=== PATIENT | female | born 1995 | race Caucasian/White ===

== ENCOUNTER 2022-04-26 21:04 | Emergency (ER) | payer OTHER, SELFPAY ==
[2022-04-26 21:06] VITALS: BP 117/71; PULSE 80; RESP 17; TEMP 36.7; O2SAT 99; BMI 28.1
--- NOTE | 2022-04-26 22:43 | EDS_ITS ---
HPI History of Present Illness Chief Complaint: Other, Pain/Inj Informant: patient Narrative Narrative: Presents with nasal injury 8 PM. Was leaning over getting when he walked the dog when it pulled the leash hitting her nose on the door frame. No LOC. Bleeding to the left nare that resolved. No anticoagulants. No past medical history. No neck or back pain. Prior similar symptoms: No PFSH PFSH Allergy/AdvReac Type Severity Reaction Status Date / Time No Known Allergies Allergy Verified 04/26/22 21:09 ROS ROS ED Constitutional Constitutional ED: Denies chills, fever(s) or sweats Eyes Eyes: Denies change in vision ENT ENT ED: Reports other Details: Nasal injury, epistaxis ; Denies dysphagia or sore throat Cardiovascular Cardiovascular: Denies chest pain, leg edema, palpitations or racing heartbeat Respiratory/Chest Respiratory/Chest: Denies cough, dyspnea or dyspnea on exertion Gastrointestinal Gastrointestinal: Denies abdominal pain, diarrhea, nausea or vomiting Genitourinary Genitourinary ED: Denies dysuria, hematuria or urinary frequency Musculoskeletal Musculoskeletal: Denies back pain, extremity pain or neck pain Integumentary Denies rash or wounds Neurologic Neurologic: Denies headache(s), paresthesias or weakness EXAM Physical Exam Const Vital Signs: 04/26/22 21:06 Temperature 98.0 F Temperature Source Temporal Pulse Rate 80 Respiratory Rate 17 Blood Pressure 117/71 Blood Pressure Mean 86 Pulse Ox 99 Oxygen Delivery Method Room Air Positive well nourished and well developed General Appearance ED: well developed and NAD HEENT Reports moist mucous membranes HEENT Narrative: Slight swelling tenderness at the nasal bone. There is small ecchymosis on the left medial canthus. No proptosis or entrapment. No septal hematoma. No active nasal bleeding. normocephalic Eyes PERRL, EOMs intact bilaterally and conjunctivae normal General Eye ED: Yes normal appearance of both eyes Neck full ROM, no lymphadenopathy and supple General: Negative for tenderness Chest Wall Chest: Negative for tenderness Resp normal respiratory effort and normal air movement Effort and Inspection: symmetric chest movement; Negative for respiratory di stress Cardio regular rate, regular rhythm and no murmurs Peripheral Pulses: pulses 2+ throughout GI normal to inspection, nondistended, normoactive bowel sounds and non-tender Palpation: Negative for guarding or rebound tenderness present Back/Spine no CVA tenderness and no thoracic nor lumbar tenderness Extremity normal to inspection General Extremety ED: Negative for edema or tenderness General Extremity: Negative for edema Neuro oriented x3, CN's II-XII intact bilaterally and no sensory deficits noted Sensorium / Orientation: awake and alert Skin no rashes or lesions noted and no wounds MDM MDM MDM Narrative Medical decision making narrative: Patient clinical nasal bone fracture. Is no active bleeding. There is no facial bone tenderness no proptosis entrapment. No trismus. I discussed clinically treatment be the same. She agrees without imagings at this time. I will injury precautions. Tylenol Motrin as needed. Declines any medicines in the ED. Discussed could develop septal deviation that is managed later as an outpatient. She is given ENT for follow-up. All questions were answered. Discharge Plan Triage Chief Complaint: Other, Pain/Inj ED Provider: Ronak Thapa Dx/Rx/DC Orders Clinical Impression: Closed fracture nasal bone, Epistaxis due to trauma Instructions: ED Nose Fracture, No X-Ray Referrals: Kayode Greenberg MD [Med Staff - Active Staff] - 1-2 Weeks Disposition Disposition: Home, Self Care
== END 2022-04-26 23:07 | disposition home or self-care (01) ==
LOC: ED 22:53
PROVIDERS: Emergency Provider Emergency Medicine; Visit Provider Emergency Medicine
DX: S02.2XXA Fracture of nasal bones, initial encounter for closed fracture (principal); W22.8XXA Striking against or struck by other objects, initial encounter
CPT/HCPCS: 99282

== ENCOUNTER → 2023-03-13 | Outpatient (CLI) | payer OTHER, SELFPAY ==
[2023-03-13 11:36] LABS: Bacteria 0 SEEN /hpf (None Seen); Mucous, Urine 0 SEEN /hpf (<or=2+); Red Blood Cells-Urine 0 SEEN /hpf (0-5); White Blood Cells 0 SEEN /hpf (0-5)
[2023-03-13 12:24] LABS: Color, Urine Yellow (Yellow); Glucose, Dipstick Normal (Normal); Ketone-Dipstick Negative (Negative); Leukocyte Esterase-Dipstick Negative /ul (Negative); Nitrite-Dipstick Negative (Negative); Occult Blood-Urine Negative /ul (Negative); Protein-Dipstick Negative (Negative); Specific Gravity, Urine 1.005 (1.002-1.030); Urine Bilirubin Dipstick Negative (Negative); Urine Clarity Sl. Cloudy (Clear); Urine Urobilinogen Normal (Normal)
[2023-03-13 12:25] LABS: Absolute Lymphocyte Count 2.88 X10^3/uL (0.83-4.51); Absolute Neutrophil Count 6.9 X10^3/uL (2.0-7.7); Basophil# 0.04 X10^3/uL; Basophil% 0.4 % (0-1); Eosinophil# 0.08 X10^3/uL; Eosinophils% 0.7 % (0-5); Hematocrit 38.1 % (37-47); Hemoglobin 12.3 g/dL (12.0-15.0); Lymphocyte # 2.88 X10^3/ul (0.83-4.51); Lymphocyte % 26.4 % (19-41); Mean Corp Hgb Conc 32.3 g/dL (32-36); Mean Corpuscular Hgb 30.4 pg (27.0-32.0); Mean Corpuscular Volume 94.1 fL (81-99); Mean Platelet Vol. 9.8 fl (6.2-12.0); Monocyte# 0.93 X10^3/uL; Monocyte% 8.5 % (0-10); NRBC Flagged by Analyzer 0 % (0-5); Neutrophil # 6.94 X10^3/uL (2.7-7.7); Neutrophil % 63.7 % (47-70); Platelet Count 306 K/mm3 (150-450); RBC Distribution Width CV 12.1 % (11.6-14.6); RBC Distribution Width SD 42.5 fl (35.1-43.9); Red Blood Count 4.05 M/mm3 (4.2-5.4); White Blood Count 10.9 K/mm3 (4.4-11.0)
[2023-03-13 12:47] LABS: Internal QC Validated? YES +Cl - CLEAR BKGD
[2023-03-13 12:49] LABS: Squamous Epithelial Cells - UA 0-5 SEEN /hpf (5-10)
[2023-03-13 13:03] LABS: AST(SGOT) 18 U/L (15-37); Alanine Aminotransfer ALT/SGPT 25 U/L (13-56); Albumin, Serum 3.6 g/dL (3.2-5.0); Alkaline Phosphatase 60 U/L (45-117); Anion Gap 4 (5-15); BUN 11 mg/dL (7-18); BUN/Creat Ratio 16.9 RATIO (10-20); Calcium,Total 8.9 mg/dL (8.5-10.1); Chloride 107 mmol/L (98-107); Creatinine, Serum 0.65 mg/dL (0.55-1.02); EST Glomerular Filtration Rate 117 mL/min (>60); Est Glom Filt Rate - Afr Amer 141 mL/min (>60); Globulin 3.6 g/dL (2.2-4.2); Glucose 76 mg/dL (74-106); Protein, Total 7.2 g/dL (6.4-8.2); Sodium Level 138 mmol/L (136-145); Thyroid Stim Hormone (TSH) 1.14 uIU/mL (0.358-3.74)
[2023-03-13 13:10] LABS: Pregnancy, Serum, hCG Quali. POSITIVE Negative (0-9 Nonpreg); hCG Titer Quant., Serum 17210 mIU/mL (1-3)
== END | disposition home or self-care (01) ==
LOC: BIMLAB 11:33
PROVIDERS: PCP Internal Medicine; Referring Provider Internal Medicine; Visit Provider Internal Medicine
DX: Z00.00 Encounter for general adult medical examination without abnormal findings (principal)
CPT/HCPCS: 36415; 80053; 81001; 84443; 84702; 84703; 85025

== ENCOUNTER → 2023-03-27 | Outpatient (CLI) | payer OTHER, SELFPAY ==
--- NOTE | 2023-03-27 12:44 | US_ITS ---
STUDY: FIRST TRIMESTER OBSTETRICAL ULTRASOUND REASON FOR EXAM: Female, 27 years old . Dating. LMP: January 13, 2023. TECHNIQUE: Transvaginal TECHNICAL QUALITY: Adequate. PRIOR ULTRASOUND: None. FINDINGS: There is visualization of a single gestational sac in a normal intrauterine position. The mean sac diameter (MSD) measures 2.85 cm, indicating an estimated gestational age (EGA) of 7 weeks, 6 days. The gestational sac shape is within normal limits. There is a visualized yolk sac. The yolk sac measures 4.6 mm. The placenta is non-visualized. There is visualization of a live embryo. The crown-rump length (CRL) measures 2.43 cm, indicating an estimated gestational age (EGA) of 8 weeks, 6 days. There is demonstrated cardiac activity with a heart rate of 161 bpm. The estimated gestation age (EGA) by LMP is 10 weeks, 3 days. The estimated date of delivery (MICHAEL) by LMP is October 20, 2023. The estimated gestation age (EGA) by US is 8 weeks, 3 days. The estimated date of delivery (MICHAEL) by US is November 03, 2023. The uterus measures 10.3 cm x 6.9 cm x 5.1 cm. There is no demonstrated uterine fibroid. The cervix is closed. The right ovary measures 3.2 cm x 1.9 cm x 2.6 cm. There is no right ovarian cyst. There is no visualized right adnexal mass or complex lesion. The left ovary measures 3.9 cm x 2.5 cm x 2.1 cm. There is no left ovarian cyst. There is no visualized left adnexal mass or complex lesion. There is no fluid in the cul de sac. US/Transvaginal w/Preg US IMPRESSION: Single live intrauterine gestation with a mean gestational age of 8 weeks and 3 days. Electronically Signed: Claude Holm MD at 13:25 EDT ,
[2023-03-29 22:07] LABS: Chlamydia By Nucleic Acid AMP Negative (Negative); Gonococcus By Nucleic Acid AMP Negative (Negative)
[2023-03-31 16:28] LABS: HPV Reflexed? NOT INDICATED
== END | disposition home or self-care (01) ==
PROVIDERS: PCP Internal Medicine; Referring Provider Registered Nurse; Visit Provider Registered Nurse
DX: O09.91 Supervision of high risk pregnancy, unspecified, first trimester (principal); Z12.4 Encounter for screening for malignant neoplasm of cervix; Z3A.00 Weeks of gestation of pregnancy not specified
CPT/HCPCS: 76817; 87086; 87491; 87591; 88175; G0145

== ENCOUNTER → 2023-05-31 | Outpatient (CLI) | payer OTHER, SELFPAY ==
[2023-05-31 14:02] LABS: Absolute Lymphocyte Count 2.06 X10^3/uL (0.83-4.51); Absolute Neutrophil Count 10.5 X10^3/uL (2.0-7.7); Basophil# 0.03 X10^3/uL; Basophil% 0.2 % (0-1); Eosinophil# 0.07 X10^3/uL; Eosinophils% 0.5 % (0-5); Hematocrit 36.3 % (37-47); Hemoglobin 12.3 g/dL (12.0-15.0); Lymphocyte # 2.06 X10^3/ul (0.83-4.51); Lymphocyte % 15.3 % (19-41); Mean Corp Hgb Conc 33.9 g/dL (32-36); Mean Corpuscular Hgb 30.7 pg (27.0-32.0); Mean Corpuscular Volume 90.5 fL (81-99); Mean Platelet Vol. 10.2 fl (6.2-12.0); Monocyte# 0.71 X10^3/uL; Monocyte% 5.3 % (0-10); NRBC Flagged by Analyzer 0 % (0-5); Neutrophil # 10.48 X10^3/uL (2.7-7.7); Neutrophil % 78.1 % (47-70); Platelet Count 312 K/mm3 (150-450); RBC Distribution Width CV 12.1 % (11.6-14.6); RBC Distribution Width SD 39.8 fl (35.1-43.9); Red Blood Count 4.01 M/mm3 (4.2-5.4); White Blood Count 13.4 K/mm3 (4.4-11.0)
[2023-05-31 14:53] LABS: NATERA MAILED SPECIMEN
[2023-05-31 14:58] LABS: HIV - WCH Non-Reactive (Nonreactive); Hepatitis B Surface Antigen Non-Reactive (Nonreactive); Hepatitis C Antibody Non-Reactive (Nonreactive); Rubella IgG Reactive (Nonreactive); Syphilis Antibodies Non-reactive
== END | disposition home or self-care (01) ==
LOC: PAVLAB 13:38
PROVIDERS: Registered Nurse; PCP Internal Medicine; Referring Provider Nurse Practitioner Women's Health; Visit Provider Nurse Practitioner Women's Health
DX: O09.91 Supervision of high risk pregnancy, unspecified, first trimester (principal); Z3A.00 Weeks of gestation of pregnancy not specified
CPT/HCPCS: 36415; 85025; 86703; 86762; 86780; 86803; 86850; 86900; 86901; 87340

== ENCOUNTER → 2023-06-05 | Outpatient (CLI) | payer OTHER, SELFPAY ==
[2023-06-05 15:35] LABS: Glucose Challenge Gest 1H 50g 154 mg/dL (70-140)
== END | disposition home or self-care (01) ==
PROVIDERS: PCP Internal Medicine; Referring Provider Registered Nurse; Visit Provider Registered Nurse
DX: O99.210 Obesity complicating pregnancy, unspecified trimester (principal); Z3A.00 Weeks of gestation of pregnancy not specified
CPT/HCPCS: 36415; 82950

== ENCOUNTER → 2023-06-12 | Outpatient (CLI) | payer OTHER, SELFPAY ==
[2023-06-12 07:25] LABS: Glucose GTT-Gestation. Fasting 90 mg/dL (<105)
[2023-06-12 08:43] LABS: Glucose GTT-Gestational 1 Hr 173 mg/dL (<190)
[2023-06-12 09:40] LABS: Glucose GTT-Gestational 2 Hr 136 mg/dL (<165)
[2023-06-12 10:14] LABS: Glucose GTT-Gestational 3 Hr 81 L (<145)
== END | disposition home or self-care (01) ==
LOC: LAB 06:37
PROVIDERS: PCP Internal Medicine; Referring Provider Registered Nurse; Visit Provider Registered Nurse
DX: O99.810 Abnormal glucose complicating pregnancy (principal); Z3A.00 Weeks of gestation of pregnancy not specified
CPT/HCPCS: 36415; 82951; 82952

== ENCOUNTER → 2023-08-14 | Outpatient (CLI) | payer OTHER, SELFPAY ==
[2023-08-14 07:21] LABS: Glucose GTT-Gestation. Fasting 104 mg/dL (<105)
[2023-08-14 09:58] LABS: Glucose GTT-Gestational 2 Hr 131 mg/dL (<165)
[2023-08-14 10:21] LABS: Glucose GTT-Gestational 1 Hr 234 mg/dL (<190)
[2023-08-14 10:43] LABS: Glucose GTT-Gestational 3 Hr 79 L (<145)
== END | disposition home or self-care (01) ==
LOC: LAB 06:47
PROVIDERS: PCP Internal Medicine; Referring Provider Obstetrics & Gynecology; Visit Provider Obstetrics & Gynecology
DX: O99.810 Abnormal glucose complicating pregnancy (principal); Z3A.00 Weeks of gestation of pregnancy not specified
CPT/HCPCS: 36415; 82951; 82952

== ENCOUNTER 2023-09-26 16:00 | Outpatient (RCR) | payer OTHER, SELFPAY | END 2023-09-27 23:59 | LOC: DC 16:00 | PROVIDERS: PCP Internal Medicine; Referring Provider Registered Nurse; Visit Provider Registered Nurse | DX: O24.419 Gestational diabetes mellitus in pregnancy, unspecified control (principal); Z71.3 Dietary counseling and surveillance | CPT/HCPCS: 97802; 97803 ==

== ENCOUNTER 2023-10-04 11:05 | Outpatient (RCR) | payer OTHER, SELFPAY | END 2023-10-26 23:59 | LOC: DC 11:05 | PROVIDERS: PCP Internal Medicine; Referring Provider Registered Nurse; Visit Provider Registered Nurse | DX: O24.419 Gestational diabetes mellitus in pregnancy, unspecified control (principal); Z71.3 Dietary counseling and surveillance | CPT/HCPCS: 97803 ==

== ENCOUNTER → 2023-10-06 | Outpatient (CLI) | payer OTHER, SELFPAY ==
[2023-10-06 19:36] LABS: Group B Strep DNA By PCR Negative (Negative); Internal Control PASS; Probe Check PASS; Specimen Processing Control PASS
== END | disposition home or self-care (01) ==
PROVIDERS: PCP Internal Medicine; Referring Provider Advanced Practice Midwife; Visit Provider Advanced Practice Midwife
DX: Z34.90 Encounter for supervision of normal pregnancy, unspecified, unspecified trimester (principal)
CPT/HCPCS: 87081; 87653

== ENCOUNTER → 2023-10-13 | Outpatient (CLI) | payer OTHER, SELFPAY ==
--- NOTE | 2023-10-13 14:35 | US_ITS ---
STUDY: SECOND AND THIRD TRIMESTER OBSTETRICAL ULTRASOUND REASON FOR EXAM: Female, 28 years old growth TECHNIQUE: Transabdominal PRIOR ULTRASOUND: 03/27/2023 FINDINGS: There is a single intrauterine fetus. The fetus is in a cephalic presentation. There is demonstrated cardiac activity with a heart rate of 148 bpm. There is a normal amniotic fluid volume. The largest amniotic fluid pocket measures 9.3 cm. The amniotic fluid index (KIEL) is 15.2 cm. The placenta is anterior. There are Grade 0 placental changes. The cervix is not visualized. The bilateral adnexal regions are normal. BPD: 9.2 cm = 37 weeks, 1 day(s) HC: 32.4 cm = 36 weeks, 5 day(s) AC: 33.7 cm = 37 weeks, 4 day(s) FL: 7.1cm = 36 weeks, 4 day(s) EGA by ultrasound: 37 weeks 1 day(s) MICHAEL by ultrasound: 11/02/2023 Estimated weight: 3195 grams Weight percentile: 66% US/OB Limited With Biometrics IMPRESSION: Living intrauterine with estimated gestational age of 37 weeks and 1 days. Electronically Signed: Boy Jones MD at 17:22 EST ,
== END | disposition home or self-care (01) ==
LOC: US 14:34
PROVIDERS: PCP Internal Medicine; Referring Provider Advanced Practice Midwife; Visit Provider Advanced Practice Midwife
DX: O24.419 Gestational diabetes mellitus in pregnancy, unspecified control (principal); Z3A.00 Weeks of gestation of pregnancy not specified
CPT/HCPCS: 76816

== ENCOUNTER 2023-10-28 21:35 | Inpatient (IN) | payer OTHER, SELFPAY ==
--- OUTSIDE RECORDS SUMMARY | 2023-10-28 20:38 | XMS RPT_ITS | CCD ---
Author Name Unknown Address [address] [place] [address] Organization [facility] Care Team Providers Care Hop Grower Name Role Phone ALETHEA GRIFFITH Referring Unavailab VIVI Ortiz Primary Care Unavailable ALMITA GARCIA Attending Unavailable Encounters Encounter Date Encounter Type Care Provider Facility Start: 06-05-2023 End: 06-05-2023 ambulatory ALETHEA GRIFFITH [facility] Payers Date Payer Category Payer Unknown [id number] Private Health Insurance [id number] Summary Purpose Family History No Family History Records Found Advance Directives No Advanced Directives Records Found Additional Source Comments INFORMATION SOURCE (unrecogn ized section and content) FOR RECORDS PERTAINING TO PATIENTS WHO ARE OR HAVE BEEN ENROLLED IN A CHEMICAL DEPENDENCY/SUBSTANCEABUSE PROGRAM, SOME INFORMATION MAY BE OMITTED. This clinical summary was aggregated from multiple sources. Caution should be exercised in using it in the provision of clinical care. This summary normalizes information from multiple sources, and as a consequence, information in this document may materially change the coding, format and clinical context of patient data. In addition, data may be omitted in some cases. CLINICAL DECISIONS SHOULD BE BASED ON THE PRIMARY CLINICAL RECORDS. [employer] [facility]. provides no warranty or guarantee of the accuracy or completeness of information in this document.
--- OUTSIDE RECORDS SUMMARY | 2023-10-28 20:40 | XMS RPT_ITS | CCD ---
Author Name Unknown Address [address] [place] [address] Organization [facility] Care Team Providers Care Teasel Gig Operator Name Role Phone ALETHEA GRIFFITH Referring Unavailab VIVI Ortiz Primary Care Unavailable ALMITA GARCIA Attending Unavailable Encounters Encounter Date Encounter Type Care Provider Facility Start: 06-05-2023 End: 06-05-2023 ambulatory ALETHEA GRIFFITH [facility] Payers Date Payer Category Payer Unknown [id number] Private Health Insurance [id number] Summary Purpose Family History No Family History [...] BE BASED ON THE PRIMARY CLINICAL RECORDS. [employer] [facility]. provides no warranty or guarantee of the accuracy or completeness of information in this document.
[2023-10-28 20:52] VITALS: PULSE 98; O2SAT 97
[2023-10-28 20:53] VITALS: BP 124/81; PULSE 90; TEMP 36.9
[2023-10-28 21:00] VITALS: BMI 36.9
[2023-10-28 21:33] LABS: ROM Internal Control Test YES-OK TO RESULT pt. (Internal QC)
[2023-10-28 21:34] LABS: ROM Patient Test POSITIVE (Negative)
--- OUTSIDE RECORDS SUMMARY | 2023-10-28 21:46 | XMS RPT_ITS | CCD ---
Author Name Unknown Address [address] [place] [address] Organization [facility] Care Team Providers Care Patient Access Director Name Role Phone ALETHEA GRIFFITH Referring Unavailab VIVI Ortiz Primary Care Unavailable ALMITA GARCIA Attending Unavailable Encounters Encounter Date Encounter Type Care Provider Facility Start: 06-05-2023 End: 06-05-2023 ambulatory ALETHEA GRIFFITH [facility] Payers Date Payer Category Payer Unknown [id number] Private Health Insurance [id number] Summary Purpose Family History No Family History [...] BE BASED ON THE PRIMARY CLINICAL RECORDS. [employer] [facility]. provides no warranty or guarantee of the accuracy or completeness of information in this document.
[2023-10-28] MEDS: 0.9% Saline Lock 10 ML Syringe IV (21:50)
[2023-10-28 22:10] LABS: Absolute Lymphocyte Count 2.14 X10^3/uL (0.83-4.51); Absolute Neutrophil Count 8.7 X10^3/uL (2.0-7.7); Basophil# 0.01 X10^3/uL; Basophil% 0.1 % (0-1); Eosinophil# 0.09 X10^3/uL; Eosinophils% 0.8 % (0-5); Hemoglobin 11.7 g/dL (12.0-15.0); Lymphocyte # 2.14 X10^3/ul (0.83-4.51); Lymphocyte % 18.3 % (19-41); Mean Corp Hgb Conc 33.4 g/dL (32-36); Mean Corpuscular Hgb 29.8 pg (27.0-32.0); Mean Corpuscular Volume 89.3 fL (81-99); Mean Platelet Vol. 10.7 fl (6.2-12.0); Monocyte# 0.76 X10^3/uL; Monocyte% 6.5 % (0-10); NRBC Flagged by Analyzer 0 % (0-5); Neutrophil # 8.68 X10^3/uL (2.7-7.7); Platelet Count 236 K/mm3 (150-450); RBC Distribution Width CV 13.2 % (11.6-14.6); RBC Distribution Width SD 43.2 fl (35.1-43.9); Red Blood Count 3.92 M/mm3 (4.2-5.4); White Blood Count 11.7 K/mm3 (4.4-11.0)
[2023-10-28 22:20] LABS: Bedside Glucose 80 mg/dL (74-106)
[2023-10-28 23:06] VITALS: BP 122/71; PULSE 90; TEMP 36.3; O2SAT 96
[2023-10-28 23:28] LABS: Bedside Glucose 79 mg/dL (74-106)
[2023-10-28 23:57] LABS: Syphilis Antibodies Non-reactive
[2023-10-29] VITALS (20 sets, daily range): BP systolic 106–137; BP diastolic 60–88; PULSE 76–105; RESP 16; TEMP 36.2–37.1; O2SAT 98–99
[2023-10-29] MEDS: Oxytocin 15 Units/NS 250ml 15 UNITS/250 ML IV.SOLN 2 UNITS IV (00:58)
[2023-10-29] MEDS: Lactated Ringers 1,000 ML 50 ML IV (00:58)
[2023-10-29 03:33] LABS: Bedside Glucose 91 mg/dL (74-106)
--- NOTE | 2023-10-29 05:41 | HP.PCM.OB_ITS ---
HPI - General General Date of Admission: 10/28/23 Date of Service: 10/29/23 Chief Complaint: leaking of fluid HPI Narrative ALETHEA MATHUR, is a 28 F who presents at 39.2 with LOF since 1800 10/28/2023, clear fluid. no vb, irregular contractions upon admission.good fm. course complicated by gestational diabetes, diet controlled. GBS negative. Maternal Data Information MICHAEL Calculator Estimated Delivery Date Method Current WG Current Estimate 11/03/23 Ultrasound #1 39w 2d Other Estimates 10/20/23 LMP (Certain) 41w 2d [facility] Medical History (Updated 10/29/23 @ 05:47 by Emily Edgar CNM) Allergies Anxiety Gestational diabetes History of back problems Scoliosis Home Medications calcium-magnesium 750 mg-465 mg tablet 750 tab PO DAILY supplement 03/07/23 [History Last Taken 10/27/23] vitamin#30 30 mg iron-10 mg iron-folic acid 1 mg-omg3 capsule 30 cap PO DAILY 03/07/23 [History Last Taken 10/28/23] zinc gluconate 50 mg tablet 50 mg PO DAILY 03/07/23 [History Last Taken 10/27/23] Allergy/AdvReac Type Severity Reaction Status Date / Time No Known Allergies Allergy Verified 10/28/23 21:01 Family History Mother Anxiety Diabetes Sister Anxiety Grandfather Diabetes Grandmother Brain tumor Father Diabetes Grandmother Diabetes Surgical History No pertinent past surgical history Social History household members: spouse current occupational status: employed 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 [employer] Smoking Status: Never smoker Electronic Cigarette Use: not used alcohol intake: current alcohol intake frequency: holidays/special occasions only details: not currently due to substance use type: does not use what type of physical activity do you participate in: walking do you feel safe at home: Yes additional social history: Mark History 1 Elective abortions Hx Para 0 Spontaneous abortions Hx # Term Pregnancies Ectopic pregnancies Hx # Pregnancies Multiple births # of living children Visit Details Expected Delivery Route/Plan Labor Preferences- CB/BF classes: encouraged, might not be able to attend d/t timing. [employer] online course enc. labor support person: Mark labor intervention preferences: [] pain management options preferred: unmedicated cut cord/dad catch: [] : yes PP control planned: [] discussed possible routes of delivery and associated risks: [] special requests: [] Plans Covid status: unvax Flu vaccine: declines Tdap vaccine: declined Rhogam: at 28 weeks, prn LARC form signed: completed movement and labor precautions reviewed. Problem list reviewed and updated with the most current plan of care details and appropriate orders placed. Relevant counseling for the gestational age provided. Continue routine care and follow up unless otherwise noted in visit notes/problem list details OB Flowsheet Initial Weight: Not Recorded Date -?-?-?-?-?-?-?-?-?-?-?-?- EGA Weight BP Urine Prot -?-?-?-?-?-?-?-?-?-?-?-?- Glucose FHR FuHt Pres Dilation -?-?-?-?-?-?-?-?-?-?-?-?- Effaced St Visit Note 03/27/23 -?-?-?-?-?-?-?-?-?-?-?-?- 8w 3d 179 lb 8 oz 133/81 -?-?-?-?-?-?-?-?-?-?-?-?- 160 -?-?--?-?-?-?-?-?-?-?-?-?- LC- formal ultra sound scheduled for today. CRL difficult to visualize.+FHR 160. early glucose. discussed and desires NIPT 04/28/23 -?-?-?-?-?-?-?-?-?-?-?-?- 13w 0d 184 lb 4 oz 125/75 Nega tive -?-?-?-?-?-?-?-?-?-?-?-?- Negative 160 -?-?-?-?-?-?-?-?-?-?-?-?- KW-no vb/crampin kain BRONSON-no vb/cramping. Discussed AFP. US ordered 05/31/23 -?-?-?-?-?-?-?-?-?-?-?-?- 17w 5d 187 lb 4 oz 120/72 Nega tive -?-?-?-?-?-?-?-?-?-?-?-?- Negative 145 -?-?-?-?-?-?-?-?-?-?-?-?- MH-No VB. Feels well. Will do PN labs and NIPT today. MFM US next week. Declines flu vaccine 06/30/23 -?-?-?-?-?-?-?-?-?-?-?-?- 22w 0d 196 lb 2 oz Negative -?-?-?-?-?-?-?-?-?-?-?-?- Negative 140 -?-?-?-?-?-?-?-?-?-?-?-?- JV- no lof, vagi nal bleeding, or dec fm.passed 3 hour at 17 weeks. plan to rpt at 28 weeks. 07/28/23 -?-?-?-?-?-?-?-?-?-?-?-?- 26w 0d 203 lb 112/76 Negative -?-?-?-?-?-?-?-?-?-?-?-?- Negative 140 27 -?-?-?-?-?-?-?-?-?-?-?-?- SM- plan 3 hrgtt no vb lof good fm no regular ctx plan cb classes 08/11/23 -?-?-?-?-?-?-?-?-?-?-?-?- 28w 0d 205 lb 2 oz 116/74 -?-?-?-?-?-?-?-?-?-?-?-?- 130 28 -?-?-?-?-?-?-?-?-?-?-?-?- LC- no vb/ctx/lo f. good fm. obtaining labs on monday using fresh test. 08/25/23 -?--?-?-?-?-?-?-?-?-?-?-?- 30w 0d 202 lb 4 oz 112/71 Nega tive -?-?-?-?-?-?-?-?-?-?-?-?- Negative 140 29 -?-?-?-?-?-?-?-?-?-?-?-?- LC- no vb/ctx/lo f. good fm. GDM. need foot setter referral. started checking glucose, all fasting under 95. LC- no vb/ctx/lof. good fm. GDM. need foot setter referral. started checking glucose, all fasting under 95. athlete foot bilaterally nystatin powder rx sent. LC- no vb/ctx/lof. good fm. GDM. need foot setter referral, reviewed diabetic diet. 20% pp sugars are elevated. started checking glucose, all fasting under 95. athlete foot bilaterally nystatin powder rx sent. 09/08/23 -?-?-?-?-?-?-?-?-?-?-?-?- 32w 0d 206 lb 102/67 Negative -?-?-?-?-?-?-?-?-?-?-?-?- Negative 140 34 -?-?-?-?-?-?-?-?-?-?-?-?- SM- no vb lof go od fm n oregular ctxBS reviewed, labor preferences sheet given 09/22/23 -?-?-?-?-?-?-?-?-?-?-?-?- 34w 0d 206 lb 8 oz 120/70 Nega tive -?-?-?-?-?-?-?-?-?-?-?-?- Negative 140 35 -?-?-?-?-?-?-?-?-?-?-?-?- SM- no vb lof go od fm no regualr ctx discussed preferences, reivewed BS- reduced dinner carb intake and if still elevated recommend starting medicine with dinner 09/29/23 -?-?-?-?-?-?-?-?-?-?-?-?- 35w 0d 211 lb 117/72 -?-?-?-?-?-?-?-?-?-?-?-?- 130 36 Cephalic -?-?-?-?-?-?-?-?-?-?-?-?- SM- BS reviewed and WNL, no vb lof good fm no regular ctx growth US next week 10/06/23 -?-?-?-?-?-?-?-?-?-?-?-?- 36w 0d 210 lb 8 oz 118/78 Nega tive -?-?-?-?-?-?-?-?-?-?-?-?- Negative 130 38 Cephalic -?-?-?-?-?--?-?-?-?-?-?-?- KW- no vb/lof/ct x. good fm. BS reviewed and within range. gbs done. labor precautions reviewed KW- no vb/lof/ctx. good fm. BS reviewed and within range. gbs done. labor precautions. growth us ordered. 10/13/23 -?-?-?-?-?-?-?-?-?-?-?-?- 37w 0d 211 lb 6 oz 113/74 Nega tive -?-?-?-?-?-?-?-?-?-?-?-?- Negative 130 38 Cephalic -?-?-?-?-?-?-?-?-?-?-?-?- SM- BS controlle d, no vb lof good fm no regular ctx 10/20/23 -?-?-?-?-?-?-?-?-?-?-?-?- 38w 0d 213 lb 2 oz 113/76 Nega tive -?-?-?-?-?-?-?-?-?-?-?-?- Negative 135 38.5 Cephalic -?-?-?-?-?-?-?-?-?-?-?-?- JV- no lof, vagi nal bleeding, or dec fm. pt declines vaginal exam. She does not want to be checked until 40 weeks and wants to wait until 40 weeks 3 or 4 days to be induced. glucose levels are stable. 10/27/23 -?-?-?-?-?-?-?-?-?-?-?-?- 39w 0d 211 lb 125/81 Negative -?-?-?-?-?-?-?-?-?-?-?-?- Negative 135 40 Cephalic -?-?-?-?-?-?-?-?-?-?-?-?- KW- no vb/lof/re g ctx. good fm. Discussed setting up IOL and methods of induction. labor precautions discussed NST FHR Rate Baby A Baseline: 130 Variability:: Moderate Accelerations:: 15 x 15 Decelerations:: None NST Reactive:: Yes FHR Category:: Category I ROS Cardiovascular Cardiovascular: Denies abdominal pain, chest pain, diaphoresis or dyspnea Respiratory/Chest Respiratory/Chest: Denies change in mental status, chest congestion, chest tightness, cough, shortness of breath at rest, shortness of breath with exertion, breast mass, breast pain, breast skin changes, breast swelling, change in breast shape or nipple discharge Genitourinary Genitourinary: Reports change in urinary stream Musculoskeletal Musculoskeletal: Reports none Integumentary Integumentary: Reports none Neurologic Neurologic: Reports none Psychiatric Psychiatric: Reports none Endocrine Endocrinology: Reports none Hematologic/Lymphatic Hematologic/Lymphatic: Reports none Allergic/Immunologic Allergic/Immunologic: Reports none Vital Signs Vital Signs Vital Signs: 10/28/23 20:52 10/28/23 20:52 10/28/23 20:53 Temperature Temperature Source Pulse Rate 98 Blood Pressure 124/81 H BP Systolic 124 BP Diastolic 81 Pulse Ox 97 10/28/23 20:53 10/28/23 20:53 10/28/23 20:53 Temperature 98.4 F Temperature Source Temporal Pulse Rate 90 Blood Pressure BP Systolic BP Diastolic Pulse Ox 10/28/23 23:06 10/28/23 23:06 10/28/23 23:06 Temperature Temperature Source Pulse Rate 90 Blood Pressure 122/71 H BP Systolic 122 BP Diastolic 71 Pulse Ox 96 10/28/23 23:06 10/28/23 23:06 10/29/23 00:02 Temperature 97.4 F L Temperature Source Temporal Pulse Rate Blood Pressure 122/75 H BP Systolic 122 BP Diastolic 75 Pulse Ox 10/29/23 00:02 10/29/23 00:02 10/29/23 00:02 Temperature 97.2 F L Temperature Source Temporal Pulse Rate 81 Blood Pressure BP Systolic BP Diastolic Pulse Ox 10/29/23 01:06 10/29/23 01:06 10/29/23 01:06 Temperature Temperature Source Temporal Pulse Rate 84 Blood Pressure 121/67 H BP Systolic 121 BP Diastolic 67 Pulse Ox 10/29/23 01:06 10/29/23 02:10 10/29/23 02:10 Temperature 97.7 F L Temperature Source Pulse Rate 97 Blood Pressure 133/65 H BP Systolic 133 BP Diastolic 65 Pulse Ox 10/29/23 02:10 10/29/23 02:10 10/29/23 03:08 Temperature 98.4 F Temperature Source Temporal Pulse Rate Blood Pressure 120/87 H BP Systolic 120 BP Diastolic 87 Pulse Ox 10/29/23 03:08 10/29/23 03:08 10/29/23 05:18 Temperature Temperature Source Pulse Rate 82 Blood Pressure 125/88 H BP Systolic 125 BP Diastolic 88 Pulse Ox 99 10/29/23 05:18 10/29/23 05:18 10/29/23 05:18 Temperature 97.7 F L Temperature Source Temporal Pulse Rate 88 Blood Pressure BP Systolic BP Diastolic Pulse Ox Weight Weight: 215 lb 6.4 oz Body Mass Index (BMI) 36.9 Physical Exam Const alert, oriented x3 and no apparent distress General Appearance: cooperative, comfortable and well kempt Orientation / Consciousness: awake and oriented to person Exam Limitations: no limitations HEENT normocephalic Neck full ROM Chest inspection of chest normal Resp normal respiratory effort, normal air movement and no retractions Effort and Inspection: able to speak in complete sentences and symmetric chest movement Cardio regular rate Peripheral Pulses: pulses 2+ throughout GI normal to inspection, nondistended, normoactive bowel sounds Inspection: gravid no CVA tenderness and appearance of the vagina normal External Female Exam: normal appearance of the urethra; Negative for external lesion OB / External & Speculum: external exam normal Manual OB Exam: estimated gestational size appropriate and presentation cephalic Uterus Palpation: Negative for uterus tender Extremity normal to inspection Skin no rashes or lesions noted Neuro deep tendon reflexes 2+ bilaterally and gait normal Motor Exam: strength 5/5 throughout and clonus absent Psych Activity / Motor Behavior: appropriate eye contact Speech: normal speech Labs Labs Labs: Blood Type O POSITIVE Antibody Screen NEGATIVE Hct 35.0 % (37-47) L Hgb 11.7 g/dL (12.0-15.0) L Obstetrics Ultrasound Syphilis Total Ab Non-reactive Rubella IgG Antibody Reactive (Nonreactive) Hep Bs Antigen Non-Reactive (Nonreactive) Hepatitis C Antibody Non-Reactive (Nonreactive) Chlamydia DNA (SINCERE) Negative (Negative) N.gonorrhoeae DNA (SINCERE) Negative (Negative) HIV 1&2 Antibody Non-Reactive (Nonreactive) Glucose 1 Hr 50 gm 154 mg/dL (70-140) H Gest Glucose Tolerance MG/DL Group B Strep DNA Negative (Negative) Assessment & Plan (1) SROM (spontaneous rupture of membranes): COMMENT: 1800 10/28/2023, clear fluid. afebrile (2) Obesity affecting : QUALIFIERS: Trimester: second trimester Obesity type affecting : severe obesity due to excess calories Qualified Code(s): O99.212 - Obesity complicating , second trimester; E66.01 - Morbid (severe) obesity due to excess calories COMMENT: early 1 hour glucose, healthy weight reviewed. (3) : QUALIFIERS: Weeks of gestation: 39 weeks Qualified Code(s): Z3A.39 - 39 weeks gestation of COMMENT: gbs neg, NIPT low risk declined carrier and ntd screening , nl anatomy (4) Supervision of high risk in first trimester: COMMENT: PRR MICHAEL 11/03/23 BOY Shon : Mark (5) Gestational diabetes: COMMENT: diet controlled, growth us at 36 (66%)delivery by 40 PLAN: glucose management per protocol (6) History of back problems: COMMENT: mild scoliosis PLAN: Plan Patient presents SROM at term.irregular contractions. Pitocin augmentation. plans unmedicated , desires pitocin with slow progression/as needed for intervention Pain management: plans unmedicated, rn lvn at bedside. GBS negative. Management of any complications: GDM. glucose management per protocol, glucose 80s. I have reviewed the [facility] and made any clinically relevant updates. updated on admission, exam and poc. making cervical change
[2023-10-29 07:25] LABS: Bedside Glucose 87 mg/dL (74-106)
[2023-10-29] MEDS: Ondansetron 4 MG/2 ML Vial IV (07:37)
--- NOTE | 2023-10-29 08:34 | PN.OBGYN_ITS ---
Subjective Subjective working through contractions. feeling a lot of pressure. Objective Data Objective Data Vital Signs: Vital Signs Temp Pulse BP Pulse Ox 98.7 F 83 109/64 99 10/29/23 06:25 10/29/23 06:25 10/29/23 06:25 10/29/23 03:08 Weight: 215 lb 6.4 oz Body Mass Index (BMI) 36.9 Intake & Output: Intake and Output for Last 24 Hours 10/27/23 10/28/23 10/29/23 23:59 23:59 23:59 Intake Total 1379.17 / 1379.17 Output Total 400 / 400 Balance 979.17 / 979.17 Lab / Micro Data 10/28/23 21:50 Labs: Laboratory Results - last 24 hr 10/28/23 21:05: Vag Amniotic Fld Detect POSITIVE H 10/28/23 21:50: WBC 11.7 H, RBC 3.92 L, Hgb 11.7 L, Hct 35.0 L, MCV 89.3, MCH 29.8, MCHC 33.4, RDW Std Deviation 43.2, RDW Coeff of Forrest 13.2, Plt Count 236, MPV 10.7, Immature Gran % (Auto) 0.300, Neut % (Auto) 74.0 H, Lymph % (Auto) 18.3 L, [place] % (Auto) 6.5, Eos % (Auto) 0.8, Baso % (Auto) 0.1, Absolute Neuts (auto) 8.7 H, Absolute Lymphs (auto) 2.14, Nucleated RBC % 0, Syphilis Total Ab Non-reactive, Blood Type O POSITIVE, Antibody Screen NEGATIVE 10/28/23 21:57: POC Glucose 80 10/28/23 23:09: POC Glucose 79 10/29/23 03:06: POC Glucose 91 10/29/23 07:01: POC Glucose 87 Physical Exam Const alert and no apparent distress Resp normal respiratory effort Manual OB Exam: dilated 8, effaced 95 and station +2 Skin no rashes or lesions noted Psych mental status grossly normal Assessment & Plan (1) SROM (spontaneous rupture of membranes): COMMENT: 1800 10/28/2023, clear fluid. afebrile (2) Active labor at term: COMMENT: pitocin on 2mu, making adequate cervical change PLAN: Plan -anticipate -frequent position changes. -x3 variables, reassuring maternal and monitoring- now cat 1 tracing.
[2023-10-29] MEDS: Oxytocin 15 Units/NS 250ml 15 UNITS/250 ML IV.SOLN 83 UNITS IV (09:10)
--- NOTE | 2023-10-29 09:45 | EX.PCM.OBRPT ---
Assessment & Plan (1) (spontaneous vaginal delivery): COMMENT: LC SROM 39.3 boy: Florence. Maternal Data Information MICHAEL Calculator Estimated Delivery Date Method Current WG Current Estimate 11/03/23 Ultrasound #1 39w 2d Other Estimates 10/20/23 LMP (Certain) 41w 2d Final MICHAEL: 11/03/23 Final MICHAEL Source: LMP Gestational age: 39.3 Vaginal Delivery Maternal Presentation Maternal Presentation: Spontaneous Rupture of Membranes Maternal Presentation: at 39.3 SROM at 1600 10/28/2023. started on pitocin augmentation at 1am only required 2mu. progressed to fully dilated with urge to push. Type of Induction: Pitocin Operative Information Date of Procedure: 10/29/23 Pre-Operative Diagnosis: see problem list Post-Operative Diagnosis: Surgery / Procedure Performed: Spontaneous Vaginal Delivery Type of Anesthesia: Local with 1% Lidocaine Estimated Blood Loss: 300 Time of Delivery: 08:58 Findings Description of Procedure: Patient began pushing and delivered the head in the BRANDAN presentation. The head was delivered atraumatically and a tight nuchal cord was identified, somersaulted over cord. The anterior and posterior shoulders delivered without complication followed by the rest of the infant and the infant was placed on the maternal abdomen. Delayed cord clamping was employed for approximately 4 minutes. Cord was clamped and cut and gentle traction was applied to the cord and the placenta delivered spontaneously immediately following it was noted to be intact with three-vessel cord. The perineum and vagina were inspected and noted to have small vaginal laceration not progressing to perineum, repaired with 1 figure of 8 stitch with good hemostasis. EBL was 300cc. Patient and infant tolerated delivery well, entered recovery phase bonding skin to skin. baby boy florence updated on delivery, no complications.routine pp care with glucose monitoring for GDM. Presentation: Vertex Amniotic Membrane Rupture Type: Spontaneous Time of Membrane Rupture: 1600 Amniotic Fluid Description: Clear Placental Delivery Description: Spontaneous Placenta Disposition: [facility] Cord Vessel Description: 3 Vessels Cord Entanglement: None Infant A Gender: Male (1 minute): 8 (5 minute): 9 Delayed Cord Clamping: Yes Post Vaginal Delivery Medications Given After Delivery: IV Pitocin Laceration: Vaginal Extension/lac Procedures Urinary/Genital [id number]: [id number] Vaginal Delivery [facility]
--- NOTE | 2023-10-29 09:57 | DCINST_ITS ---
Discharge Instructions Diet Discharge Diet: No restrictions Activity Discharge Activity: May Not Drive and May Shower May resume sexual activity in: 6 weeks Weight Bearing Status: Full weight bearing Dressing / Incision Call your doctor if your incision/area has: Sudden Increased Bleeding, Increased Pain/ Swelling and Foul Smelling Discharge Call your doctor if you observe: Fever of 101 or Higher, Numbness or Tingling, Change in Color, Inability to urinate, Inability to have a bowel movement, Using more than 1 pad per hour, Shortness of breath, Dizziness, Fainting spells, Chest pain, Calf discomfort and Uncontrolled pain Follow Up Care Please Follow Up With: Emily Edgar CNM When: 6 weeks , please call office to make an appointment. Congratulations on the of your baby! Test Results: Test results from this visit will be discussed in further detail at your follow- up appointment, if applicable. Discharge Plan Admission Admit Date/Time: 10/28/23 21:35 Attending Provider: Emily Edgar Primary Care Provider: Lenora Viveros Discharge Orders/Prescriptions Prescriptions: No Action PNV #[id number] 30 mg iron-10 mg iron-1 mg capsule 30 cap PO DAILY zinc gluconate 50 mg tablet 50 mg PO DAILY calcium-magnesium 750-465 mg tablet 750 tab PO DAILY Referrals / Follow Up: Lenora Viveros MD [Primary Care Provider] -
[2023-10-29] MEDS: Senna/Docusate Sodium 1 Tablet PO (19:55)
[2023-10-30 05:38] VITALS: BP 110/74; PULSE 81; RESP 16; TEMP 36.6
[2023-10-30 06:05] LABS: Bedside Glucose 95 mg/dL (74-106)
[2023-10-30 09:00] VITALS: BP 115/79; PULSE 87; RESP 18; TEMP 36.6; O2SAT 99
--- NOTE | 2023-10-30 09:08 | PCM.PN.OB ---
Subjective Subjective Patient doing well without complaints. Tolerating PO. Ambulating and voiding without difficulty. Feeding well, using nipple shield. Denies chest pain, shortness of breath, calf pain/swelling, fevers, chills, lightheadedness. Objective Data Objective Data Vital Signs: Vital Signs Temp Pulse Resp BP Pulse Ox O2 Del Method 97.9 F 81 16 110/74 99 Room Air 10/30/23 05:38 10/30/23 05:38 10/30/23 05:38 10/30/23 05:38 10/29/23 19:58 10/30/23 05:38 Oxygen Delivery Method Room Air Weight: 215 lb 6.4 oz Body Mass Index (BMI) 36.9 Intake & Output: Intake and Output for Last 24 Hours 10/28/23 10/29/23 10/30/23 23:59 23:59 23:59 Intake Total 2499.04 / 2499.04 Output Total 700 / 700 Balance 1799.04 / 1799.04 Lab / Micro Data 10/28/23 21:50 Labs: Laboratory Results - last 24 hr 10/30/23 05:46: POC Glucose 95 Physical Exam Const alert and no apparent distress Chest inspection of chest normal Nipple/Areola: nipples/areola normal Resp normal respiratory effort and normal air movement Cardio regular rate and regular rhythm GI normal to inspection, nondistended, normoactive bowel sounds Bimanual Exam - Vag & Uterus: Negative for uterus tender Uterus Palpation: uterus fundus firm Extremity normal to inspection and full ROM Psych mental status grossly normal Assessment & Plan (1) (spontaneous vaginal delivery): COMMENT: SROM 39.3 boy: Obed. PLAN: s/p PPD # 1 1. routine post delivery care 2. breast feeding- support given. to see today prior to d/c 3. rh positive 4. rubella immune 5. desires d/c home today
[2023-10-30 14:50] VITALS: BP 106/74; PULSE 80; RESP 16; TEMP 36.3
[2023-10-30] MEDS: Senna/Docusate Sodium 1 Tablet PO (16:31)
[2023-10-31 13:26] VITALS: BP 129/85; PULSE 90; RESP 17; TEMP 36.4; O2SAT 97
== END 2023-10-30 17:50 | disposition home or self-care (01) | DRG 807 ==
LOC: WPOUT 21:42 → WP 21:42
PROVIDERS: Admitting Provider Registered Nurse; PCP Internal Medicine; Visit Provider Registered Nurse
DX: O99.214 Obesity complicating childbirth (principal); Z37.0 Single live birth; O24.420 Gestational diabetes mellitus in childbirth, diet controlled; E66.01 Morbid (severe) obesity due to excess calories; O69.2XX0 Labor and delivery complicated by other cord entanglement, with compression, not applicable or unspecified; Z3A.39 39 weeks gestation of pregnancy
CPT/HCPCS: 59025; 59050; 82962; 84112; 85025; 86780; 86850; 86900; 86901; 99221; J7120; A4216; G0378; J2405

== ENCOUNTER → 2025-07-16 | Outpatient (CLI) | payer OTHER, SELFPAY ==
[2025-07-16 17:34] LABS: Hematocrit 36.7 % (37-47); Hemoglobin 12.2 g/dL (12.0-15.0); Immature Granulocytes Count 0.020 X10^3/uL (0.0-0.0); Mean Corp Hgb Conc 33.2 g/dL (32-36); Mean Corpuscular Volume 90.0 fL (81-99); Mean Platelet Vol. 9.7 fl (6.2-12.0); NRBC Flagged by Analyzer 0 % (0-5); Platelet Count 349 K/mm3 (150-450); RBC Distribution Width CV 12.4 % (11.6-14.6); RBC Distribution Width SD 41.1 fl (35.1-43.9); Red Blood Count 4.08 M/mm3 (4.2-5.4); White Blood Count 10.1 K/mm3 (4.4-11.0)
[2025-07-16 17:52] LABS: HIV Nonreactive (Nonreactive); Hepatitis B Surface Antigen Nonreactive (Nonreactive); Hepatitis C Antibody Nonreactive (Nonreactive); Syphilis Antibodies Nonreactive (Nonreactive)
[2025-07-18 20:08] LABS: Chlamydia By Nucleic Acid AMP Negative (Negative); Gonococcus By Nucleic Acid AMP Negative (Negative)
== END | disposition home or self-care (01) ==
PROVIDERS: Visit Provider Student in an Organized Health Care Education/Training Program
DX: O99.210 Obesity complicating pregnancy, unspecified trimester (principal); Z86.32 Personal history of gestational diabetes; Z3A.00 Weeks of gestation of pregnancy not specified; O09.90 Supervision of high risk pregnancy, unspecified, unspecified trimester
CPT/HCPCS: 36415; 83036; 85025; 86703; 86762; 86780; 86803; 86850; 86900; 86901; 87086; 87340; 87491; 87591